=== PATIENT | male | born 1985 | race Caucasian/White ===

== ENCOUNTER 2020-12-06 15:07 | Emergency (ER) | payer OTHER ==
[2020-12-06 16:00] LABS: BASOPHIL 0.3 % (0-2); EOSINOPHIL 0.2 % (0-5); HCT 44.4 % (42.0-52.0); LYMPHOCYTE 10.6 % (15-48); MCH 29.7 pg (25.0-31.0); MCV 82.4 fL (78.0-100.0); MONOCYTE 5.1 % (0-12); MPV 8.5 fL (6.0-9.5); NEUTROPHIL 83.5 % (41-80); NRBC 0; PLT 302 K/uL (150-400); RBC 5.39 M/uL (4.70-6.00); RDW 12.5 % (11.5-14.0); WBC 15.5 K/uL (4.0-10.5)
[2020-12-06 16:21] LABS: BILIRUBIN 1+ mg/dL (NEGATIVE); BLOOD NEGATIVE Ery/uL (NEGATIVE); CLARITY CLEAR (CLEAR); COLOR YELLOW (YELLOW); GLUCOSE (U) NORMAL (NORMAL); LEUKOCYTES NEGATIVE Leu/uL (NEGATIVE); NITRITE NEGATIVE (NEGATIVE); PROTEIN TRACE (LOW) mg/dL (NEGATIVE); SPECIFIC GRAVITY 1.025 (1.001-1.030); UROBILINOGEN 0.2 mg/dL (0.2-1.0)
[2020-12-06 16:34] LABS: BACTERIA TRACE; URINARY WBC RARE
[2020-12-06 16:35] LABS: ALBUMIN 4.1 g/dL (3.4-5.0); BILIRUBIN - TOTAL 0.7 mg/dL (0.2-1.0); BUN/CREAT RATIO (CALC) 15.4 RATIO; CREATININE 1.04 mg/dL (0.67-1.17); GLOBULIN (CALCULATION) 3.4 g/dL; POTASSIUM 3.1 mmol/L (3.5-5.1); TOTAL PROTEIN 7.5 g/dL (6.4-8.2)
[2020-12-06] MEDS ORDERED: CIPRO500 MG PO (19:10)
[2020-12-06] MEDS ORDERED: METRONIDAZOLE500 MG PO (19:10)
== END 2020-12-06 19:35 | disposition home or self-care (01) ==
LOC: FER 15:07
PROVIDERS: Internal Medicine
DX: K52.9 Noninfective gastroenteritis and colitis, unspecified (principal)
CPT/HCPCS: 36415; 80053; 81001; 82150; 83605; 83690; 84145; 85025; J1100; J1200; J7030; Q9967